=== PATIENT | female | born 1975 | race African-American/Black ===

== ENCOUNTER 2017-01-14 21:09 | Emergency (ER) | payer OTHER ==
[2017-01-14 21:32] VITALS: BP 144/93; PULSE 100; TEMP 98.4; BMI 35.5
== END 2017-01-14 22:46 | disposition left against medical advice (07) ==
LOC: JER 21:09 → SUPCPDRO 21:09 → JER 22:46
DX: Z53.21 Procedure and treatment not carried out due to patient leaving prior to being seen by health care provider (principal)
CPT/HCPCS: 99281-25

== ENCOUNTER 2017-01-17 09:56 | Emergency (ER) | payer OTHER ==
[2017-01-17 10:09] VITALS: BP 162/98; PULSE 103; TEMP 98.5; BMI 32.8
--- NOTE | 2017-01-17 10:29 | PDOC ---
History of Present Illness - General Chief Complaint: Chest Pain Stated Complaint: CHEST PAIN Time Seen by Provider: 01/17/17 10:27 History Source: Patient Exam Limitations: No Limitations - History of Present Illness Initial Comments: 01/17/17 11:15 Chief Complaint: "My chest hurts and has hurt for the last five days". Pt. is a 41 y/o female s/p 20 days ago, with PMH of R lung cancer (2008), ectopic , presents to the ED complaining of chest pain. Pt states that the right side of her chest hurts and is made worse when taking a big breath, sneezing, laughing, or changing position. Admits to non- productive cough, edema, light headedness, SOB with exertion. Pt. states that she is worried because of her cancer history. Pt. took one Percocet at 5am with little relief. Denies headache, palpitations, and N/V/D. Past History - Travel Traveled outside of the country in the last 30 days: No Close contact w/someone who was outside of country & ill: No - Past Medical History Allergies/Adverse Reactions: Allergies Allergy/AdvReac Type Severity Reaction Status Date / Time No Known Allergies Allergy Verified 01/17/17 10:06 Home Medications: Ambulatory Orders Oxycodone HCl/Acetaminophen [Percocet 5-325 mg Tablet] 1 - 2 tab PO Q6H PRN #14 tab MDD 8 01/17/17 Cancer: Yes (H/O RT LUNG CA: 2008) - Surgical History Abdominal Surgery: Yes (ECTOPIC ) - Reproductive History (#): 7 Para: 2 Therapeutic (s) & number: Yes (2) Spontaneous : 3 - Immunization History Immunization Up to Date: Yes - Psycho/Social/Smoking Cessation Hx Anxiety: No Suicidal Ideation: No Smoking Status: Yes Smoking History: Former smoker Have you smoked in the past 12 months: Yes Number of Cigarettes Smoked Daily: 7 Information on smoking cessation initiated: No Hx Alcohol Use: No Drug/Substance Use Hx: No Substance Use Type: None Hx Substance Use Treatment: No Review of Systems - Review of Systems Able to Perform ROS?: Yes Is the patient limited Bengali proficient: No Constitutional: No: Chills, Fever, Weakness HEENTM: Yes: Nose Congestion. No: Recent change in vision Respiratory: Yes: Cough, SOB with Exertion, Wheezing. No: SOB at Rest Cardiac (ROS): Yes: Chest Pain (right sided), Edema, Irregular Heart Rate, Lightheadedness. No: Palpitations ABD/GI: No: Diarrhea, Nausea, Vomiting Neurological: No: Headache, Weakness, Dizziness *Physical Exam - Vital Signs Last Vital Signs Temp Pulse Resp BP Pulse Ox 98.5 F 103 H 18 162/98 100 01/17/17 10:06 01/17/17 10:06 01/17/17 10:06 01/17/17 10:06 01/17/17 10:06 - Physical Exam General Appearance: Yes: Nourished, Appropriately Dressed, Mild Distress HEENT: positive: EOMI, EDGARD, Normal ENT Inspection, TMs Normal, Pharynx Normal Neck: positive: Trachea midline, Supple. negative: Tender, Rigid, Lymphadenopathy (R), Lymphadenopathy (L) Respiratory/Chest: positive: Chest Tender, Lungs Clear, Normal Breath Sounds, Respiratory Distress, Accessory Muscle Use Cardiovascular: positive: Regular Rhythm, S1, S2 (present, No splits), Edema (1 + pedal edema), Tachycardia (rate of 110 R). negative: Murmur Gastrointestinal/Abdominal: positive: Normal Bowel Sounds, Tender (diffuse abdominal tenderness, worse over scar), Flat, Soft, Hernia (umbilical hernia, reducible). negative: Organomegaly, Pulsatile Mass Neurologic: positive: delivery and mail sorter II-XII NML intact, Fully Oriented, Alert, Normal Mood/ Affect, Normal Response, Motor Strength 5/5 ED Treatment Course - LABORATORY CBC & Chemistry Diagram: 01/17/17 10:45 01/17/17 10:45 Medical Decision Making - Medical Decision Making 01/17/17 11:27 Pt. is a 41 y/o female complaining of chest pain s/p 20 days ago. Pt. is tachycardic on exam, O2 sats 99% on RA. Given exam cannot r/o PE. Pt states that the pain is similar to her cancer pain in the past. Tenderness to palpation over umbilicus and LLQ. Will evaluate the hernia at this time with abdominal CT. Will order chest CTA. Will also r/o pneumonia and cardiac causes. Will give morphine for pain and start fluids to pre-hydrate prior to CTA and CT of abdomen. Will re-evaluate EKG: Sinus tachycardia rate of 97. Qt/QTc 380/482. No acute ST-T wave changes. 01/17/17 12:47 Cardiac labs are negative at this time. No evidence of infection, WBC within normal limits. CMP unremarkable. 01/17/17 14:15 CTA chest shows no evidence of PE, heart size within normal limits. Abdominal CT shows a fat containing hernia, but no obstruction, free air or bleeding. All imaging is considered negative at this time. Pt. is still complaining of pain. Will give toradol at this time. Pt. still has not given urine sample. Will give another bag of fluids and encourage pt. to use the bathroom. 01/17/17 15:52 Urine is negative at this time. Will discharge pt. home at this time. Pt. states that she would like another dose of morphine because her IV line infiltrated after the first dose. Will give 1mg of morphine and discharge home. *DC/Admit/Observation/Transfer Diagnosis at time of Disposition: Chest pain Qualifiers: Chest pain type: precordial pain Qualified Code(s): R07.2 - Precordial pain Abdominal pain Qualifiers: Abdominal location: left lower quadrant Qualified Code(s): R10.32 - Left lower quadrant pain - Discharge Dispostion Disposition: HOME Condition at time of disposition: Fair Admit: No - Prescriptions Prescriptions: Oxycodone HCl/Acetaminophen [Percocet 5-325 mg Tablet] 1 - 2 tab PO Q6H PRN #14 tab MDD 8 PRN Reason: Pain - Referrals Referrals: Teofilo Torres MD [Primary Care Provider] - - Patient Instructions Printed Discharge Instructions: DI for Atypical Chest Pain Additional Instructions: Your testing today was normal. Your white blood cell count was within normal limits. You CAT of your lungs today showed no evidence of blood clots, or any other abnormalities. Your abdominal CAT Scan shows a hernia, but otherwise, no blockages or infection. You were prescribed tramadol for pain and follow the instructions on the bottle. Return to the ED if your pain is worse while on the pain medications, or if you become lightheaded or short of breath, or if there are any changes in your symptoms.
[2017-01-17] MEDS ORDERED: SODIUM CHLORIDE 1,000 ML IV STA ×2 (10:49→14:07)
[2017-01-17] MEDS ORDERED: morphine CARPU-JECT 2 MG/1 ML DISP.SYRIN IVPUSH ONE ×2 (10:50→15:45)
[2017-01-17] MEDS ORDERED: morphine CARPU-JECT 2 MG/1 ML DISP.SYRIN ONE ×2 (11:16→15:50)
[2017-01-17 11:36] LABS: BASOPHIL 1.3 % (0-2.0); EOSINOPHIL 7.9 % (0-4.5); MCH 29.1 pg (25.7-33.7); MCHC 32.7 g/dl (32.0-36.0); MEAN PLT VOLUME 7.9 fl (7.5-11.1); NEUTROPHILS 66.1 % (42.8-82.8); PLATELET COUNT 240 K/MM3 (134-434); RDW 15.6 % (11.6-15.6); WHITE BLOOD COUNT 6.2 K/mm3 (4.0-10.0)
[2017-01-17 11:52] LABS: ALBUMIN 3.5 g/dl (3.4-5.0); ANION GAP 9 (8-16); BILIRUBIN,TOTAL 0.5 mg/dL (0.2-1.0); CO2 27 mmol/L (21-32); CREATININE 0.8 mg/dL (0.55-1.02); GLUCOSE,RANDOM 90 mg/dL (74-106); SGPT/ALT 18 U/L (12-78); TOT PROT 7.1 g/dl (6.4-8.2)
[2017-01-17 11:55] LABS: ALK PHOS 97 U/L (45-117); TROPONIN I < 0.02 ng/ml (0.00-0.05)
[2017-01-17 12:03] LABS: SGOT/AST 30 U/L (15-37)
--- NOTE | 2017-01-17 12:11 | PDOC ---
*Physical Exam - Vital Signs Last Vital Signs Temp Pulse Resp BP Pulse Ox 98.5 F 103 H 18 162/98 100 01/17/17 10:06 01/17/17 10:06 01/17/17 10:06 01/17/17 10:06 01/17/17 10:06 - Physical Exam Comments: 01/17/17 12:07 Seated comfortably in stretcher speaking full sentences, vital signs as noted with slight tachycardia tender across the right chest, lungs sounds are clear Heart is regular slight tachycardia Abdomen is soft/nondistended, tender particularly in the left lower quadrant and over an umbilical hernia that is difficult to reduce Question whether right ankle is slightly larger than the left - patient states this is been the case since her delivery Heart Score/ECG Review #1 ECG reviewed & interpreted by me at: 10:04 General ECG Interpretation: Sinus Rhythm, Normal Rate (97), Normal Intervals ( qtc 482), No acute ischemic changes (no evidence of R heart strain, ? read as low voltage) ED Treatment Course - LABORATORY CBC & Chemistry Diagram: 01/17/17 10:45 01/17/17 10:45 - ADDITIONAL ORDERS Additional order review: Laboratory Results 01/17/17 01/17/17 10:45 10:45 Sodium 139 Potassium 4.6 Chloride 103 Carbon Dioxide 27 Anion Gap 9 BUN 6 L D Creatinine 0.8 Creat Clearance w eGFR > 60 Random Glucose 90 Calcium 8.0 L Total Bilirubin 0.5 D AST 30 D ALT 18 Alkaline Phosphatase 97 D Creatine Kinase Cancelled 272 H Troponin I Cancelled < 0.02 Total Protein 7.1 Albumin 3.5 01/17/17 10:45 RBC 4.10 MCV 89.0 MCHC 32.7 RDW 15.6 D MPV 7.9 D Neutrophils % 66.1 Lymphocytes % 19.7 D Monocytes % 5.0 Eosinophils % 7.9 H Basophils % 1.3 - Medications Given in the ED: ED Medications Discontinued Medications Generic Name Dose Route Start Last Admin Trade Name Freq PRN Reason Stop Dose Admin Sodium Chloride 1,000 mls @ 1,000 mls/hr 01/17/17 10:49 01/17/17 11:12 Normal Saline - IV 01/17/17 11:48 1,000 mls/hr ASDIR STA Administration Morphine Sulfate 2 mg 01/17/17 10:50 01/17/17 11:13 Morphine Injection - IVPUSH 01/17/17 10:51 2 mg ONCE ONE Administration Medical Decision Making - Medical Decision Making 01/17/17 12:09 Patient seen and evaluated with the nurse practitioner. I agree with the overall evaluation, assessment, and management with the following summary of visit: 41-year-old female 20 days status post of otherwise uncomplicated presents with right chest pain for 5 days similar to past mesothelioma symptoms, also with some fatigue on exertion and cough. Also complaining of left lower quadrant pain since her , no vomiting, normal bowel movements, no change in her known umbilical hernia. Presentation could be concerning for PE given the recent surgery and , will need CTA chest. Symptoms are similar to past mesothelioma which was treated with chemotherapy and radiation, rule out recurrence particularly in the setting of recent Concerning umbilical hernia which is very tender and difficult to reduce, will check CT of the abdomen and pelvis to rule out obstruction or incarceration Labs, urinalysis, EKG Pain control reassess *DC/Admit/Observation/Transfer Diagnosis at time of Disposition: Chest pain Qualifiers: Chest pain type: precordial pain Qualified Code(s): R07.2 - Precordial pain Abdominal pain Qualifiers: Abdominal location: left lower quadrant Qualified Code(s): R10.32 - Left lower quadrant pain - Discharge Dispostion Condition at time of disposition: Fair - Referrals Referrals: Teofilo Torres MD [Primary Care Provider] - - Patient Instructions - Post Discharge Activity
[2017-01-17] MEDS ORDERED: KETOROLAC TROMETHAMINE 30 MG/1 ML VIAL IVPUSH ONE (13:45)
--- NOTE | 2017-01-17 13:59 | EKG ---
Test Reason : Blood Pressure : / mmHG Vent. Rate : 097 BPM Atrial Rate : 097 BPM P-R Int : 152 ms QRS Dur : 080 ms QT Int : 380 ms P-R-T Axes : 070 017 044 degrees QTc Int : 482 ms NORMAL SINUS RHYTHM POSSIBLE LEFT ATRIAL ENLARGEMENT LOW VOLTAGE QRS PROLONGED QT ABNORMAL ECG WHEN COMPARED WITH ECG OF 25-MAR-2011 08:16, NO SIGNIFICANT CHANGE WAS FOUND Confirmed by JESSICA PADILLA MD ([id number]) on 01/17/2017 1:59:14 PM Referred By: Confirmed By:JESSICA PADILLA MD
[2017-01-17] MEDS ORDERED: KETOROLAC TROMETHAMINE 30 MG/1 ML VIAL ONE (14:10)
[2017-01-17 15:10] LABS: URINE APPEARANCE CLEAR; URINE BILIRUBIN NEGATIVE (NEGATIVE); URINE BLOOD NEGATIVE (NEGATIVE); URINE COLOR STRAW; URINE GLUCOSE (UA) NEGATIVE (NEGATIVE); URINE KETONE NEGATIVE (NEGATIVE); URINE LEUK ESTERASE NEGATIVE (NEGATIVE); URINE NITRITE NEGATIVE (NEGATIVE); URINE PROTEIN NEGATIVE (NEGATIVE); URINE UROBILINOGEN NEGATIVE E.U./dl (0.2-1.0)
== END 2017-01-17 16:56 | disposition home or self-care (01) ==
LOC: JER 09:56
PROC: 3E033NZ Introduction of Analgesics, Hypnotics, Sedatives into Peripheral Vein, Percutaneous Approach (ICD-10-PCS; principal; 2017-01-17)
PROC: 3E0333Z Introduction of Anti-inflammatory into Peripheral Vein, Percutaneous Approach (ICD-10-PCS; 2017-01-17)
PROC: 3E033NZ Introduction of Analgesics, Hypnotics, Sedatives into Peripheral Vein, Percutaneous Approach (ICD-10-PCS; 2017-01-17)
DX: O90.89 Other complications of the puerperium, not elsewhere classified (principal); R07.2 Precordial pain; R10.32 Left lower quadrant pain
CPT/HCPCS: 36415; 71020-TC; 71275-TC; 74160-TC; 80053; 81003; 82550; 82553; 84484; 85025; 87086; 93005; 93010; 96374; 96375; 96376; 99284-25

== ENCOUNTER 2017-03-15 12:03 | Emergency (ER) | payer OTHER ==
[2017-03-15 12:14] VITALS: BP 153/94; PULSE 100; TEMP 98.4; BMI 34.2
--- NOTE | 2017-03-15 13:06 | PDOC ---
History of Present Illness - General Chief Complaint: Ear Problem Stated Complaint: EAR PROBLEM Time Seen by Provider: 03/15/17 12:35 History Source: Patient Exam Limitations: No Limitations - History of Present Illness Initial Comments: 03/15/17 14:17 My Chief Complaint: worsening right ear pain History of present illness: Patient is a 41-year-old female with a history of small cell lung cancer 2019 in remission and herniated disc lumbar spine here today complaining of right ear pain that is worsening with yellowish discharge over the last 3 days. Patient denies any swimming. Patient denies putting anything in her right ear. Patient reports the pain currently as a 10 out of 10. Patient has tenderness to the external ear as well as internal ear. Patient also reports having slight sore throat for the last few days. Patient denies any sick contacts or any recent travel. Patient denies any fever or any loss of hearing. Timing/Duration: getting worse (over 3 days ) Severity: severe Associated Symptoms: reports: other (rt. external and internal rt. ear pain for 3 days ) Past History - Past Medical History Allergies/Adverse Reactions: Allergies Allergy/AdvReac Type Severity Reaction Status Date / Time No Known Allergies Allergy Verified 03/15/17 12:14 Home Medications: Ambulatory Orders Oxycodone HCl/Acetaminophen [Percocet 5-325 mg Tablet] 1 - 2 tab PO Q6H PRN #14 tab MDD 8 01/17/17 Amoxicillin/Potassium Clav [Amox-Clav 875-125 mg Tablet] 1 each PO BID #10 tablet 03/15/17 Ofloxacin Otic [Floxin Otic -] 10 drop AD DAILY #1 drops 03/15/17 Cancer: Yes (H/O RT LUNG CA: 2009) - Surgical History Abdominal Surgery: Yes (ECTOPIC ) - Reproductive History (#): 7 Para: 2 Therapeutic (s) & number: Yes (2) Spontaneous : 3 - Immunization History Immunization Up to Date: Yes - Psycho/Social/Smoking Cessation Hx Anxiety: No Suicidal Ideation: No Smoking Status: Yes Smoking History: Former smoker Have you smoked in the past 12 months: Yes Number of Cigarettes Smoked Daily: 7 Information on smoking cessation initiated: No Hx Alcohol Use: No Drug/Substance Use Hx: No Substance Use Type: None Hx Substance Use Treatment: No Review of Systems - Review of Systems Able to Perform ROS?: Yes Constitutional: No: Symptoms Reported HEENTM: Yes: Ear Pain (right internal and external ear pain getting worse, yellowish discharge rt. ear), Throat Pain. No: Hearing Loss Respiratory: No: Symptoms reported ABD/GI: No: Symptoms Reported : No: Symptoms Reported Musculoskeletal: No: Symptoms Reported Integumentary: No: Symptoms Reported Neurological: No: Symptoms reported *Physical Exam - Vital Signs Last Vital Signs Temp Pulse Resp BP Pulse Ox 98.4 F 100 H 18 153/94 99 03/15/17 12:03/15/17 12:03/15/17 12:03/15/17 12:03/15/17 12:09 - Physical Exam General Appearance: Yes: Appropriately Dressed HEENT: positive: TMs Normal (left ), Pharyngeal Erythema, Tonsillar Erythema ( with no uvular deviation ), Hearing Grossly Normal, TM Bulging (right ), TM Erythema (right ), Other (external rt. ear canal edema/erythema, tragus erythema /tenderness/ erythema post auricular, no mastoid tenderness). negative: Tonsillar Exudate Neck: positive: Lymphadenopathy (R). negative: Lymphadenopathy (L) Respiratory/Chest: positive: Lungs Clear, Normal Breath Sounds. negative: Chest Tender, Respiratory Distress Cardiovascular: positive: Regular Rhythm, Regular Rate, S1, S2 Integumentary: positive: Normal Color Neurologic: positive: Alert Medical Decision Making - Medical Decision Making 03/15/17 14:19 Patient is a 41-year-old female with a history of small cell lung cancer 2019 in remission and herniated disc lumbar spine here today complaining of right ear pain that is worsening with yellowish discharge over the last 3 days. Patient denies any swimming. Patient denies putting anything in her right ear. Patient reports the pain currently as a 10 out of 10. Patient has tenderness to the external ear as well as internal ear. Patient also reports having slight sore throat for the last few days. Patient denies any sick contacts or any recent travel. Patient denies any fever or any loss of hearing. right external otitis and rt. otitis media PLAN: ofloxacin otic 0.3% 10 drops rt ear for 7 days augmentin 875mg/125 mg bid for 10 days follow up with ENT percocet 5mg/325mg po now *DC/Admit/Observation/Transfer Diagnosis at time of Disposition: Otitis media Qualifiers: Otitis media type: unspecified Chronicity: acute Laterality: unspecified laterality Qualified Code(s): H66.90 - Otitis media, unspecified, unspecified ear Otitis externa of right ear Qualifiers: Otitis externa type: unspecified type Chronicity: acute Qualified Code(s): H60.501 - Unspecified acute noninfective otitis externa, right ear - Discharge Dispostion Disposition: HOME Condition at time of disposition: Stable - Prescriptions Prescriptions: Amoxicillin/Potassium Clav [Amox-Clav 875-125 mg Tablet] 1 each PO BID #10 tablet Ofloxacin Otic [Floxin Otic -] 10 drop AD DAILY #1 drops - Referrals Referrals: Teofilo Torres MD [Primary Care Provider] - Kevin Rodriguez MD [Staff Physician] - - Patient Instructions Additional Instructions: FOLLOW UP WITH DR. RODRIGUEZ SOON POSSIBLE RETURN TO EMERGENCY ROOM IF SYMPTOMS WORSEN INCREASED REDNESS OR FEVER PATIENT VOICED UNDERSTANDING OF DISCHARGE INSTRUCTIONS AND ALL QUESTIONS WERE ANSWERED
[2017-03-15] MEDS ORDERED: OXYCODONE/APAP 5/325MG COMBO TABLET PO ONE (14:06)
[2017-03-15] MEDS ORDERED: OXYCODONE/APAP 5/325MG COMBO TABLET ONE (14:08)
== END 2017-03-15 14:21 | disposition home or self-care (01) ==
LOC: JERFT 12:03
DX: H66.91 Otitis media, unspecified, right ear (principal); H60.501 Unspecified acute noninfective otitis externa, right ear
CPT/HCPCS: 84703; 87070; 87430; 99281-25

== ENCOUNTER 2017-12-29 12:55 | Emergency (ER) | payer OTHER ==
[2017-12-29 12:59] VITALS: BP 151/100; PULSE 110; TEMP 98; BMI 34.9
--- NOTE | 2017-12-29 13:50 | PDOC ---
History of Present Illness - General Chief Complaint: Pain Stated Complaint: Toothache Time Seen by Provider: 12/29/17 13:11 History Source: Patient Exam Limitations: No Limitations Past History - Past Medical History Allergies/Adverse Reactions: Allergies Allergy/AdvReac Type Severity Reaction Status Date / Time No Known Allergies Allergy Verified 12/29/17 12:56 Home Medications: Ambulatory Orders Amox-Tr/K Cl [Augmentin - 875Mg Tablet] 1 tab PO BID #14 tablet 12/29/17 Oxycodone HCl/Acetaminophen [Percocet 5-325 mg Tablet] 1 tab PO Q6H #15 tablet MDD 4 12/29/17 Cancer: Yes (H/O RT LUNG CA: 2008) COPD: No Other medical history: BACK PROBLEMS - Surgical History Abdominal Surgery: Yes (ECTOPIC ) - Reproductive History (#): 7 Para: 2 Therapeutic (s) & number: Yes (2) Spontaneous : 3 - Immunization History Immunization Up to Date: Yes - Suicide/Smoking/Psychosocial Hx Smoking Status: Yes Smoking History: Former smoker Have you smoked in the past 12 months: Yes Number of Cigarettes Smoked Daily: 7 Information on smoking cessation initiated: Yes 'Breaking Loose' booklet given: 12/29/17 Hx Alcohol Use: No Drug/Substance Use Hx: No Substance Use Type: None Hx Substance Use Treatment: No *Physical Exam - Vital Signs Last Vital Signs Temp Pulse Resp BP Pulse Ox 98.0 F 110 H 18 151/100 100 12/29/17 12:57 12/29/17 12:57 12/29/17 12:57 12/29/17 12:57 12/29/17 12:57 *DC/Admit/Observation/Transfer Diagnosis at time of Disposition: Gum abscess - Discharge Dispostion Disposition: HOME Condition at time of disposition: Stable Admit: No - Prescriptions Prescriptions: Amox-Tr/K Cl [Augmentin - 875Mg Tablet] 1 tab PO BID #14 tablet Oxycodone HCl/Acetaminophen [Percocet 5-325 mg Tablet] 1 tab PO Q6H #15 tablet MDD 4 - Referrals Referrals: Teofilo Torres MD [Primary Care Provider] - - Patient Instructions Printed Discharge Instructions: DI for Tooth Abscess Additional Instructions: You have an infection in your gum. Please take the Augmentin twice a day for 7 days. You may take Motrin 800 mg every 8 hours as needed for pain. If you experience breakthrough pain. Please take the Percocet as directed. Use warm water gargles to help with cleaning her mouth. Please follow up with her dentist as soon as possible. A referral has been provided below. Return to the emergency department if you have worsening pain, fevers, chills, or any changes in your symptoms. [facility] [id number] [place] [address] - Post Discharge Activity Forms/Work/School Notes: Back to Work
== END 2017-12-29 13:55 | disposition home or self-care (01) ==
LOC: JERFT 12:55
DX: K05.219 Aggressive periodontitis, localized, unspecified severity (principal)
CPT/HCPCS: 99281-25

== ENCOUNTER 2018-04-26 20:56 | Observation (INO) | payer OTHER ==
[2018-04-26 21:18] VITALS: BMI 36.5
--- NOTE | 2018-04-26 21:20 | PDOC ---
Rapid Medical Evaluation Time Seen by Provider: 04/26/18 21:15 Medical Evaluation: Allergies Allergy/AdvReac Type Severity Reaction Status Date / Time No Known Allergies Allergy Verified 04/25/18 03:50 04/26/18 21:16 Pt presents to the ED for abdominal pain. Pt was evaluated yesterday and was told to stay d/t her withdrawals from oxycodone. Pt states the pain is worse and she is unable to keep anything down. Reports burning down her esophagus as well. Exam: ttp of the abdomen. Appears uncomfortable Orders: Discharge Disposition - Diagnosis Abdominal pain - Referrals Referrals: Teofilo Torres MD [Primary Care Provider] - - Patient Instructions - Post Discharge Activity
[2018-04-26] MEDS ORDERED: FAMOTIDINE 20 MG/50 ML IVPB 20 MG/50 ML MG IVPB ONE ×2 (22:25→23:03)
[2018-04-26] MEDS ORDERED: DICYCLOMINE HCL 20 MG/2 ML AMPUL IM ONE (22:25)
[2018-04-26] MEDS ORDERED: SODIUM CHLORIDE 0.9% 1000 ML INFUS.BAG IV ONE (22:25)
[2018-04-26] MEDS ORDERED: ONDANSETRON 4 MG/2 ML VIAL IVPUSH ONE (22:25)
--- NOTE | 2018-04-26 22:25 | PDOC ---
History of Present Illness - General History Source: Patient, Old Records Exam Limitations: No Limitations - History of Present Illness Initial Comments: 04/27/18 01:34 The patient is a 42 year old female, with a significant past medical history of right lung CA (2008), who presents to the ED complaining of abdominal pain. It is noted that the patient was evaluated yesterday and was told that she needed to stay in the hospital due to withdrawals from oxycodone. She reports that her pain is worsening and is unable to keep any foods or liquids down. She notes that she feels a burning sensation down her esophagus. The patient denies chest pain, shortness of breath, headache and dizziness. Denies fever, chills, diarrhea or constipation. Denies dysuria, frequency, urgency and hematuria. Allergies: None Past surgical history: Ectopic Social History: Current every day smoker (10 daily). Opiate use. <Dm Castro - Last Filed: 04/27/18 01:34> <Casandra Webster - Last Filed: 04/27/18 01:39> - General Chief Complaint: Nausea/Vomiting Stated Complaint: STOMACH PAIN Time Seen by Provider: 04/26/18 21:15 Past History <Dm Castro - Last Filed: 04/27/18 01:34> - Past Medical History Cancer: Yes (H/O RT LUNG CA: 2008) COPD: No - Surgical History Abdominal Surgery: Yes (ECTOPIC ) - Reproductive History (#): 7 Para: 2 Therapeutic (s) & number: Yes (2) Spontaneous : 3 - Immunization History Immunization Up to Date: Yes - Suicide/Smoking/Psychosocial Hx Smoking Status: Yes Smoking History: Current every day smoker Have you smoked in the past 12 months: Yes Number of Cigarettes Smoked Daily: 10 Information on smoking cessation initiated: Yes 'Breaking Loose' booklet given: 04/26/18 Hx Alcohol Use: No Drug/Substance Use Hx: No Substance Use Type: Opiates Hx Substance Use Treatment: No <Casandra Webster - Last Filed: 04/27/18 01:39> - Past Medical History Allergies/Adverse Reactions: Allergies Allergy/AdvReac Type Severity Reaction Status Date / Time No Known Allergies Allergy Verified 04/26/18 21:18 Home Medications: Ambulatory Orders Oxycodone HCl/Acetaminophen [Percocet 5-325 mg Tablet] 1 tab PO Q6H #15 tablet MDD 4 12/29/17 Oxycodone HCl/Acetaminophen [Oxycodone-Acetaminophen 10-325] 1 each PO TID PRN # 9 tablet MDD 3 tabs 04/25/18 Review of Systems - Review of Systems Able to Perform ROS?: Yes Comments:: 04/26/18 23:47 GENERAL/CONSTITUTIONAL: No fever or chills. No weakness. HEAD, EYES, EARS, NOSE AND THROAT: No change in vision. No ear pain or discharge. No sore throat. GASTROINTESTINAL: (+) Abdominal pain. No nausea, vomiting, diarrhea or constipation. GENITOURINARY: No dysuria, frequency, or change in urination. CARDIOVASCULAR: No chest pain or shortness of breath. RESPIRATORY: No cough, wheezing, or hemoptysis. MUSCULOSKELETAL: No joint or muscle swelling or pain. No neck or back pain. SKIN: No rash NEUROLOGIC: No headache, vertigo, loss of consciousness, or change in strength/ sensation. ENDOCRINE: No increased thirst. No abnormal weight change. HEMATOLOGIC/LYMPHATIC: No anemia, easy bleeding, or history of blood clots. ALLERGIC/IMMUNOLOGIC: No hives or skin allergy. <Dm Castro - Last Filed: 04/27/18 01:34> *Physical Exam - Vital Signs Last Vital Signs Temp Pulse Resp BP Pulse Ox 99.4 F 110 H 18 162/104 99 04/26/18 21:15 04/26/18 21:15 04/26/18 21:15 04/26/18 21:15 04/26/18 21:15 - Physical Exam Comments: 04/26/18 23:46 Constitutional: Awake, alert, oriented. No acute distress. Head: Normocephalic. Atraumatic Eyes: PERRL. EOMI. Conjunctivae are not pale. ENT: Mucous membranes are moist and intact. Posterior pharynx without exudates or erythema. Uvula midline. Neck: Supple. Full ROM. No lymphadenopathy. Cardiovascular: Regular rate. Regular rhythm. S1, S2 regular. Distal pulses are 2+ and symmetric. Pulmonary/Chest: No evidence of respiratory distress. Clear to auscultation bilaterally No wheezing, rales or rhonchi. Abdominal: Soft and non-distended. There is no tenderness. No rebound, guarding or rigidity. No organomegaly. No palpable masses. Good bowel sounds. Back: No CVA tenderness. Musculoskeletal: No edema. No cyanosis. No clubbing. Full range of motion in all extremities. Nocalf tenderness. Radial/pedal pulses are intact and 2+ bilaterally Skin: Skin is warm and dry. No petechiae. No purpura. Neurological: Alert and oriented to person, place, and time. Cranial nerves II -XII are grossly intact. Normal speech. Strength is grossly symmetric. No sensory deficits. Psychiatric: Good eye contact. Normal interaction, affect and behavior. <Dm Castro - Last Filed: 04/27/18 01:34> - Vital Signs Last Vital Signs Temp Pulse Resp BP Pulse Ox 99.4 F 110 H 18 162/104 99 04/26/18 21:15 04/26/18 21:15 04/26/18 21:15 04/26/18 21:15 04/26/18 21:15 <Casandra Webster - Last Filed: 04/27/18 01:39> Heart Score/ECG Review - ECG Intrepretation Comment:: 04/26/18 23:56 sinus at 100, nl axis, nl interval, no acute st/t wave findings <Casandra Webster - Last Filed: 04/27/18 01:39> ED Treatment Course - LABORATORY CBC & Chemistry Diagram: 04/26/18 22:56 04/26/18 22:56 - ADDITIONAL ORDERS Additional order review: Laboratory Results 04/26/18 22:56 Sodium 138 Potassium 3.7 Chloride 105 Carbon Dioxide 25 Anion Gap 8 BUN 7 Creatinine 1.1 H Creat Clearance w eGFR 55.01 Random Glucose 100 Calcium 8.7 Total Bilirubin 0.3 AST 20 ALT 18 Alkaline Phosphatase 83 D Total Protein 7.8 Albumin 3.9 04/26/18 22:56 RBC 4.41 MCV 75.3 L MCHC 32.3 RDW 19.3 H MPV 7.1 L Neutrophils % 71.2 Lymphocytes % 21.7 D Monocytes % 4.5 D Eosinophils % 1.6 D Basophils % 1.0 - Medications Given in the ED: ED Medications Discontinued Medications Generic Name Dose Route Start Last Admin Trade Name Freq PRN Reason Stop Dose Admin Dicyclomine HCl 20 mg 04/26/18 22:25 04/26/18 23:11 Bentyl Injection - IM 04/26/18 22:26 20 mg ONCE ONE Administration Famotidine/Sodium Chloride 20 mg in 50 mls @ 100 mls/hr 04/26/18 22:25 23:09 Pepcid 20 Mg Premixed Ivpb - IVPB 04/26/18 22:54 100 mls/hr ONCE ONE Administration Ondansetron HCl 4 mg 04/26/18 22:25 04/26/18 23:10 Zofran Injection IVPUSH 04/26/18 22:26 4 mg ONCE ONE Administration Sodium Chloride 1,000 ml 04/26/18 22:25 04/26/18 23:10 Normal Saline - IV 04/26/18 22:26 1,000 ml ONCE ONE Administration <Dm Castro - Last Filed: 04/27/18 01:34> - LABORATORY CBC & Chemistry Diagram: 04/26/18 22:56 04/26/18 22:56 <Casandra Webster - Last Filed: 04/27/18 01:39> Medical Decision Making - Medical Decision Making 04/26/18 23:38 a/p: 42yo female with hx of opiate use for chronic lbp -stopped taking her oxycodone a week ago -seen in the ED for narcotic withdrawal last night -didn't want to stay for furhter treatment -today continued to have n/v and a burning sensation to her abd -pt given hydrocodone in the ed during last visit so again concern for narcotic withdrawal -will repeat labs, ekg -will medicate for narcotic withdrawal and for n/v -will give GI cocktail once n/v resolved -will monitor and reassess -will most likely need obs for narcotic withdrawal 04/27/18 01:06 pt with persistent vomiting will remedicate and place in obs for intractable n/v from narcotic withdrawal 04/27/18 01:38 pt states she cannot fill her oxycodone rx until may 04, but does not want to stop taking her narcotics pt with persistent nv in the ed case discussed with [facility] who accepts pt to service <Casandra Webster - Last Filed: 04/27/18 01:39> *DC/Admit/Observation/Transfer - Attestations Scribe Attestion: 04/26/18 23:46 Documentation prepared by Dm Castro, acting as medical aide for Casandra Webster DO <Dm Castro - Last Filed: 04/27/18 01:34> - Discharge Dispostion Decision to Admit order: Yes - Attestations Physician Attestion: 04/27/18 01:07 I, Dr. Casandra Webster DO, attest that this document has been prepared under my direction and personally reviewed by me in its entirety. I further attest, that it accurately reflects all work, treatment, procedures and medical decision -making performed by me. <Casandra Webster - Last Filed: 04/27/18 01:39> Diagnosis at time of Disposition: Abdominal pain, Nausea and vomiting - Discharge Dispostion Condition at time of disposition: Guarded - Referrals Referrals: Teofilo Torres MD [Primary Care Provider] - - Patient Instructions - Post Discharge Activity
[2018-04-26] MEDS ORDERED: ONDANSETRON 4 MG/2 ML VIAL ONE (23:02)
[2018-04-26 23:04] LABS: EOS % 1.6 % (0-4.5); HEMATOCRIT 33.2 % (32.4-45.2); HEMOGLOBIN 10.7 GM/dL (10.7-15.3); LYMPH % 21.7 % (8-40); MCH 24.3 pg (25.7-33.7); MCHC 32.3 g/dl (32.0-36.0); MEAN CELL VOLUME 75.3 fl (80-96); MEAN PLT VOLUME 7.1 fl (7.5-11.1); MONO % 4.5 % (3.8-10.2); NEUT % 71.2 % (42.8-82.8); PLATELET COUNT 402 K/MM3 (134-434); RBC 4.41 M/mm3 (3.60-5.2); RDW 19.3 % (11.6-15.6); WHITE BLOOD COUNT 6.9 K/mm3 (4.0-10.0)
[2018-04-26 23:38] LABS: ALBUMIN 3.9 g/dl (3.4-5.0); ANION GAP 8 MMOL/L (8-16); BILIRUBIN,TOTAL 0.3 mg/dL (0.2-1.0); BLOOD UREA NITROGEN 7 mg/dL (7-18); CALCIUM 8.7 mg/dL (8.5-10.1); CHLORIDE 105 mmol/L (98-107); CO2 25 mmol/L (21-32); CREATININE 1.1 mg/dL (0.55-1.02); GLUCOSE,RANDOM 100 mg/dL (74-106); POTASSIUM 3.7 mmol/L (3.5-5.1); SGOT/AST 20 U/L (15-37); SGPT/ALT 18 U/L (12-78); SODIUM 138 mmol/L (136-145); TOT PROT 7.8 g/dl (6.4-8.2)
[2018-04-26 23:39] LABS: ALK PHOS 83 U/L (45-117)
[2018-04-26] MEDS ORDERED: MAG HYDROX/AL HYDROX/SIMETH 30 ML UNIT-DOSE CUP PO ONE (23:56)
[2018-04-26] MEDS ORDERED: LIDOCAINE VISCOUS 2% ORAL/TOP 20 ML UNIT-DOSE CUP MM ONE (23:56)
[2018-04-27] MEDS ORDERED: METOCLOPRAMIDE HCL INJECTION 10 MG/2 ML VIAL IVPUSH ONE (01:05)
[2018-04-27] MEDS ORDERED: ACETAMINOPHEN 1000 MG/100 ML VIAL (NON FORMULARY) IVPB ONE (01:05)
[2018-04-27] MEDS ORDERED: SODIUM CHLORIDE 0.9% 1000 ML INFUS.BAG IV ONE (01:05)
[2018-04-27] MEDS ORDERED: cloNIDine HCL 0.1 MG TABLET PO ONE (01:06)
[2018-04-27] MEDS ORDERED: LIDOCAINE VISCOUS 2% ORAL/TOP 20 ML UNIT-DOSE CUP ONE (01:12)
[2018-04-27] MEDS ORDERED: MAG HYDROX/AL HYDROX/SIMETH 30 ML UNIT-DOSE CUP ONE (01:13)
[2018-04-27] MEDS ORDERED: cloNIDine HCL 0.1 MG TABLET ONE (01:17)
[2018-04-27] MEDS ORDERED: METOCLOPRAMIDE HCL INJECTION 10 MG/2 ML VIAL ONE ×2 (01:17→08:19)
[2018-04-27] MEDS ORDERED: ACETAMINOPHEN INJECTION 100 ML IVPB ONE (01:17)
[2018-04-27 01:34] LABS: URINE APPEARANCE CLEAR; URINE BILIRUBIN NEGATIVE (<2.0 mg/dL); URINE COLOR LTYELLOW; URINE GLUCOSE (UA) NEGATIVE (NEGATIVE); URINE KETONE NEGATIVE (NEGATIVE); URINE LEUK ESTERASE NEGATIVE (NEGATIVE); URINE NITRITE NEGATIVE (NEGATIVE); URINE PROTEIN NEGATIVE (NEGATIVE); URINE UROBILINOGEN NEGATIVE mg/dL (0.2-1.0)
[2018-04-27 01:36] LABS: HCG,QUALITATIVE URINE Negative
[2018-04-27] MEDS ORDERED: morphine CARPU-JECT 2 MG/1 ML DISP.SYRIN IVPUSH ONE ×2 (01:37→10:00)
[2018-04-27 01:45] LABS: EPI CELLS RARE /HPF (FEW); URINE MUCUS RARE
[2018-04-27] MEDS ORDERED: LORazepam 2 MG/ML SDV VIAL ONE (01:45)
[2018-04-27] MEDS ORDERED: MORPHINE SULFATE 2 MG/ML VIAL ONE (01:45)
--- NOTE | 2018-04-27 03:24 | PN ---
Teaching Attending Note Name of Resident: Ramona Durham ATTENDING PHYSICIAN STATEMENT I saw and evaluated the patient. I reviewed the resident's note and discussed the case with the resident. I agree with the resident's findings and plan as documented. SUBJECTIVE: Patient is a 42 year old woman with a significant past medical history of right lung CA (2008), tobacco use and opiate abuse who presents to the ER complaining of abdominal pain. It is noted that the patient was evaluated yesterday and was told that she needed to stay in the hospital due to withdrawals from oxycodone. She reports that her pain is worsening and is unable to keep any foods or liquids down. She notes that she feels a burning sensation down her esophagus. The patient denies chest pain, shortness of breath, diarrhea headache and dizziness. OBJECTIVE: Somnolent but arousable Vital Signs Period Temp Pulse Resp BP Sys/Bello Pulse Ox Last 24 Hr 99.4 F 110 18 162/104 99 HEENT: No Jaundice, eye redness or discharge, PERRLA, EOMI. Normocephalic, atraumatic. External ears are normal and hearing is grossly intact. No nasal discharge. Neck: Supple, nontender. No palpable adenopathy or thyromegaly. No JVD Chest: Good effort. Clear to auscultation and percussion. Heart: Regular. No S3, rub or murmur Abdomen: Not distended, soft, nontender and no HSM. No rebound or guarding. Normoactive bowel sounds. Ext: Peripheral pulses intact. No leg edema. Skin: Warm and dry. No petechiae, rash or ecchymosis. Neuro: Somnolent but arousable. Incomplete neuro exam due to somnolence. Moving all four extremities. Home Medications Medication Instructions Recorded Oxycodone HCl/Acetaminophen 1 tab PO Q6H #15 tablet MDD 4 12/29/17 [Percocet 5-325 mg Tablet] Oxycodone HCl/Acetaminophen 1 each PO TID PRN #9 tablet MDD 3 04/25/18 [Oxycodone-Acetaminophen 10-325] tabs Abnormal Lab Results 04/26/18 04/26/18 04/27/18 22:56 22:56 01:05 MCV 75.3 L MCH 24.3 L RDW 19.3 H MPV 7.1 L Creatinine 1.1 H Urine Blood 1+ H ASSESSMENT AND PLAN: 1. Abdominal pain and vomiting - Likely due to opiate withdrawal. Had noncontrast CT abdomen and chest yesterday as well as abdominal sonogram and no acute pathology detected. Got IV ativan in the ER. QT is prolonged on EKG. Will treat with IV NS, IV Reglan and Clonidine 0.1 mg po bid for uncontrolled hypertension and opiate withdrawal. Monitor on telemetry and implement fall precautions. Consult GI and desktop publishing specialist. Need outpatient care for hypertension, low salt diet and lifestyle changes. Refer to Detox upon discharge. 2. Tobacco Use We will provide patient all the necessary assistance to facilitate smoking cessation and prescribe Nicotine patch. 3. DVT prophylaxis - Lovenox 40 mg SQ q 24 hours. 4. Advance directives - Full code
[2018-04-27] MEDS ORDERED: METOCLOPRAMIDE HCL INJECTION 10 MG/2 ML VIAL IVPUSH PRN (04:10)
[2018-04-27] MEDS ORDERED: SODIUM CHLORIDE 0.45% 1,000 ML IV SCH (04:15)
--- NOTE | 2018-04-27 05:17 | HP ---
CHIEF COMPLAINT: Abdominal Pain PCP: Dr. Torres HISTORY OF PRESENT ILLNESS: 42 y/o F w a PMHx of R Lung cancer presents with Abdominal pain, nausea and vomiting. Patient was in [facility] ED yesterday (04/25) for a similar complaint however as per the patient, she left to go home to take care of her daughter. She returned today as her abdominal pain is worsening and she has been unable to tolerate PO Intake. Patient was extremely somnolent during my interview, snoring and falling asleep even while sitting up. She describes the pain as a 10 /10, burning sensation in the LUQ that travels up her mid sternum. She has tried tylenol with minimal relief. She says the burning increases with water and food. Additionally she complains of >10 episodes of clear vomiting accompanied by fevers and chills. Denies any diarrhea, constipation, SOB, dizziness, lightheadedness. ER course was notable for: (1) Reglan, Ativan, Morphine, Clonidine (2) EKG: NSR, Prolonged QTc 497, VR 100 (3) Recent Travel: Denies PAST MEDICAL HISTORY: R Lung Cancer (2008) PAST SURGICAL HISTORY: Surgery for Ectopic (Unclear at this time) Social History: Smokin/2 ppd x20 years Alcohol: Denies Drugs: Opiate use Family History: Allergies No Known Allergies Allergy (Verified 04/26/18 21:18) HOME MEDICATIONS: Home Medications Medication Instructions Recorded Oxycodone HCl/Acetaminophen 1 tab PO Q6H #15 tablet MDD 4 12/29/17 [Percocet 5-325 mg Tablet] Oxycodone HCl/Acetaminophen 1 each PO TID PRN #9 tablet MDD 3 04/25/18 [Oxycodone-Acetaminophen 10-325] tabs REVIEW OF SYSTEMS CONSTITUTIONAL: Present: fever, chills Absent: diaphoresis, generalized weakness, malaise, loss of appetite, weight change HEENT: Absent: rhinorrhea, nasal congestion, throat pain, throat swelling, difficulty swallowing, mouth swelling, ear pain, eye pain, visual changes CARDIOVASCULAR: Absent: chest pain, syncope, palpitations, irregular heart rate, lightheadedness , peripheral edema RESPIRATORY: Absent: cough, shortness of breath, dyspnea with exertion, orthopnea, wheezing, stridor, hemoptysis GASTROINTESTINAL: Present: abdominal pain, nausea, vomiting Absent: abdominal distension, diarrhea, constipation, melena, hematochezia GENITOURINARY: Absent: dysuria, frequency, urgency, hesitancy, hematuria, flank pain, genital pain MUSCULOSKELETAL: Absent: myalgia, arthralgia, joint swelling, back pain, neck pain SKIN: Absent: rash, itching, pallor HEMATOLOGIC/IMMUNOLOGIC: Absent: easy bleeding, easy bruising, lymphadenopathy, frequent infections ENDOCRINE: Absent: unexplained weight gain, unexplained weight loss, heat intolerance, cold intolerance NEUROLOGIC: Absent: headache, focal weakness or paresthesias, dizziness, unsteady gait, seizure, mental status changes, bladder or bowel incontinence PSYCHIATRIC: Absent: anxiety, depression, suicidal or homicidal ideation, hallucinations. PHYSICAL EXAMINATION Vital Signs - 24 hr 04/26/18 21:15 Temperature 99.4 F Pulse Rate 110 H Respiratory 18 Rate Blood Pressure 162/104 O2 Sat by Pulse 99 Oximetry (%) GENERAL: Somnolent but arousable, resting comfortably in no acute distress, no longer complaining of abdominal pain. Exam limited as patient fell asleep while seated, then no longer complaint, laid down and continued sleeping. EYES: PERRLA THROAT: Oropharynx clear without exudates. Moist mucous membranes. NECK: No JVD LUNGS: Breath sounds equal, clear to auscultation bilaterally. No wheezes, and no crackles. HEART: Regular rate and rhythm, normal S1 and S2 without murmur ABDOMEN: Soft, Obese, nontender to palpation, not distended, normoactive bowel sounds, no guarding, no rebound MUSCULOSKELETAL: No CVA tenderness. EXTREMITIES: 2+ pulses, No calf tenderness. No peripheral edema Laboratory Results - last 24 hr 04/26/18 04/26/18 04/27/18 22:56 22:56 01:05 WBC 6.9 RBC 4.41 Hgb 10.7 Hct 33.2 MCV 75.3 L MCH 24.3 L MCHC 32.3 RDW 19.3 H Plt Count 402 MPV 7.1 L Absolute Neuts (auto) 4.9 Neutrophils % 71.2 Lymphocytes % 21.7 D Monocytes % 4.5 D Eosinophils % 1.6 D Basophils % 1.0 Nucleated RBC % 0 Sodium 138 Potassium 3.7 Chloride 105 Carbon Dioxide 25 Anion Gap 8 BUN 7 Creatinine 1.1 H Creat Clearance w eGFR 55.01 Random Glucose 100 Calcium 8.7 Total Bilirubin 0.3 AST 20 ALT 18 Alkaline Phosphatase 83 D Total Protein 7.8 Albumin 3.9 Urine Color Ltyellow Urine Appearance Clear Urine pH 6.0 Ur Specific [place] 1.012 Urine Protein Negative Urine Glucose (UA) Negative Urine Ketones Negative Urine Blood 1+ H Urine Nitrite Negative Urine Bilirubin Negative Urine Urobilinogen Negative Ur Leukocyte Esterase Negative Urine WBC (Auto) <1 Urine RBC (Auto) 1 Ur Epithelial Cells Rare Urine Mucus Rare Urine HCG, Qual Negative ASSESSMENT/PLAN: 42 y/o F w a PMHx of R Lung cancer presents with Abdominal pain, nausea and vomiting and will be observed on Tele 1. Abdominal pain accompanied by nausea vomiting - Likely due to Opiate withdrawal; Given IV Ativan in ED - Abdominal US done yesterday did not find gall stones - CT Chest and Abdomen done yesterday - GI (Dr. Giraldo) Consulted - Started on Reglan as EKG shows prolonged QTc - IV 1/2 NS @ 75 mls/hr 2. Opiate withdrawal - Addiction medicine (Dr. Burris) Consulted 3. Uncontrolled HTN - Started on Clonidine 0.1 PO BID as this is also apart of Acute Opiate withdrawal tx - Continuous Cardiac monitoring - Can follow up cardiology outpatient 4. Tobacco Use Nicoderm patch 5. FEN - 1/2 NS @ 75 mls/hr - Lytes WNL - Regular diet 6. PPx - DVT: Lovenox 40mg SQ Q24H Visit type - Emergency Visit Emergency Visit: Yes ED Registration Date: 04/27/18 Care time: The patient presented to the Emergency Department on the above date and was hospitalized for further evaluation of their emergent condition. - New Patient This patient is new to me today: Yes Date on this admission: 04/27/18 - Critical Care Critical Care patient: No Hospitalist Screening - Colonoscopy Questionnaire Colonoscopy Questionnaire: Colonoscopy Questionnaire - Patient: 50 - 75 years old and never had a screening colonoscopy: Unknown History of colon or rectal polyps, or CA: Unknown History of IBD, Crohn's disease or UC: Unknown History of abdominal radiation therapy as a child: Unknown - Relative: 1 with colon or rectal CA, or polyps at age 60 or younger: Unknown Colon or rectal CA diagnosed at age 45 or younger: Unknown Multiple relatives with colon or rectal CA: Unknown - Outcome: Screening Result: Negative Screen
[2018-04-27 06:40] LABS: BASO % 0.7 % (0-2.0); EOS % 1.2 % (0-4.5); HEMATOCRIT 29.5 % (32.4-45.2); HEMOGLOBIN 9.3 GM/dL (10.7-15.3); LYMPH % 31.9 % (8-40); MCHC 31.6 g/dl (32.0-36.0); MEAN PLT VOLUME 7.3 fl (7.5-11.1); MONO % 5.1 % (3.8-10.2); NEUT % 61.1 % (42.8-82.8); PLATELET COUNT 286 K/MM3 (134-434); RBC 3.88 M/mm3 (3.60-5.2); RDW 19.6 % (11.6-15.6); WHITE BLOOD COUNT 5.2 K/mm3 (4.0-10.0)
[2018-04-27 07:06] LABS: ALBUMIN 3.1 g/dl (3.4-5.0); ALK PHOS 68 U/L (45-117); ANION GAP 6 MMOL/L (8-16); BILIRUBIN,TOTAL 0.3 mg/dL (0.2-1.0); BLOOD UREA NITROGEN 6 mg/dL (7-18); CALCIUM 7.7 mg/dL (8.5-10.1); CHLORIDE 108 mmol/L (98-107); CO2 26 mmol/L (21-32); CREATININE 0.9 mg/dL (0.55-1.02); GLUCOSE,RANDOM 101 mg/dL (74-106); MAGNESIUM 1.8 mg/dL (1.8-2.4); PHOSPHOROUS 3.2 mg/dL (2.5-4.9); POTASSIUM 3.8 mmol/L (3.5-5.1); SGOT/AST 15 U/L (15-37); SGPT/ALT 14 U/L (12-78); SODIUM 140 mmol/L (136-145); TOT PROT 6.5 g/dl (6.4-8.2)
--- NOTE | 2018-04-27 09:09 | CON.GI ---
Consult Consult Specialty:: GI Reason for Consultation:: abdomina pain - History of Present Illness History of Present Illness: Chart reviewed. Current and recent ED visits/work ups noted noted. per initial intake: 42 y/o F w a PMHx of R Lung cancer presents with Abdominal pain, nausea and vomiting. Patient was in [facility] ED yesterday (04/25) for a similar complaint however as per the patient, she left to go home to take care of her daughter. She returned today as her abdominal pain is worsening and she has been unable to tolerate PO Intake. Patient was extremely somnolent during my interview, snoring and falling asleep even while sitting up. She describes the pain as a 10/10, burning sensation in the LUQ that travels up her mid sternum. She has tried tylenol with minimal relief. She says the burning increases with water and food. Additionally she complains of >10 episodes of clear vomiting accompanied by fevers and chills. Denies any diarrhea, constipation, SOB, dizziness, lightheadedness. ER course was notable for: (1) Reglan, Ativan, Morphine, Clonidine (2) EKG: NSR, Prolonged QTc 497, VR 100 Microcytic hhypochromic anemia, normal liver chemistry, ALP, bili, lipase. B- HCG negative CT with 04/25/18 :IMPRESSION: 1. Possible post radiation changes medial right lung. 2. No evidence of metastatic disease or acute pathology within the chest. 3. Suspected cholelithiasis. Confirmatory ultrasonography recommended. 4. No evidence of metastatic disease or acute pathology within the abdomen. Limited study as described above. US of RUQ 04/25/18: IMPRESSION: Hepatomegaly with a slightly dense and coarse echotexture suggestive of mild fatty versus hepatocellular disease. Please correlate with liver enzymes. No gallstones are identified. The reported an acute onset nausea and vomiting with subsequent chest burning after taking a muscle relaxant. Denied having diarrhea, fever, chills, eating out, exposure to ill, recently travelling. At the time of this encounter, the pt was ambulating about the floor. NAD, comfortable. No longer nauseous, vomiting, or has dyspepsia. Tolerated Lopez for lunch w/o postprandial symptoms. Reported no prior history of GI-related issues including chronic reflux, GERD, dyspepsia, dysphagia, odynophagia, jaundice, changes in bowels, melena, or hematochezia. No history of liver disease. - History Source History Provided By: Patient, Medical Record - Past Medical History ...LMP: 03/15/15 - Alcohol/Substance Use Hx Alcohol Use: No - Smoking History Smoking history: Current every day smoker Have you smoked in the past 12 months: Yes Aproximately how many cigarettes per day: 10 Home Medications - Allergies Allergies/Adverse Reactions: Allergies Allergy/AdvReac Type Severity Reaction Status Date / Time No Known Allergies Allergy Verified 04/26/18 21:18 - Home Medications Home Medications: Ambulatory Orders Oxycodone HCl/Acetaminophen [Percocet 5-325 mg Tablet] 1 tab PO Q6H #15 tablet MDD 4 12/29/17 Oxycodone HCl/Acetaminophen [Oxycodone-Acetaminophen 10-325] 1 each PO TID PRN # 9 tablet MDD 3 tabs 04/25/18 Family Disease History - Family Disease History Family History: Unremarkable Review of Systems Findings/Remarks: as per HPI, ED, H&P Physical Exam-GI Vital Signs: Vital Signs Temperature 99.2 F 04/27/18 07:37 Pulse Rate 102 H 04/27/18 07:37 Respiratory Rate 16 04/27/18 07:37 Blood Pressure 132/87 04/27/18 07:37 O2 Sat by Pulse Oximetry (%) 98 04/27/18 07:37 Constitutional: Yes: Well Nourished, No Distress, Calm Eyes: Yes: Conjunctiva Clear HENT: Yes: Atraumatic Neck: Yes: Supple Cardiovascular: Yes: Regular Rate and Rhythm Respiratory: Yes: Regular Gastrointestinal Inspection: No: Ascites, Distention ...Auscultate: Yes: Normoactive Bowel Sounds ...Palpate: Yes: Soft. No: Firm/Rigid, Guarding, Mass, Tenderness, Tenderness, Epigastium, Tenderness, Rebound ...Percussion: Yes: Other (generalized discomfiort on deep palpation) Neurological: Yes: Alert, Oriented. No: Confusion, Lethargy Labs: CBC, BMP 04/27/18 06:25 04/27/18 06:25 Laboratory Last Values WBC 5.2 K/mm3 (4.0-10.0) 04/27/18 06:25 RBC 3.88 M/mm3 (3.60-5.2) 04/27/18 06:25 Hgb 9.3 GM/dL (10.7-15.3) L 04/27/18 06:25 Hct 29.5 % (32.4-45.2) L 04/27/18 06:25 MCV 76.0 fl (80-96) L 04/27/18 06:25 MCH 24.0 pg (25.7-33.7) L 04/27/18 06:25 MCHC 31.6 g/dl (32.0-36.0) L 04/27/18 06:25 RDW 19.6 % (11.6-15.6) H 04/27/18 06:25 Plt Count 286 K/MM3 (134-434) D 04/27/18 06:25 MPV 7.3 fl (7.5-11.1) L 04/27/18 06:25 Absolute Neuts (auto) 3.2 K/mm3 (1.5-8.0) 04/27/18 06:25 Neutrophils % 61.1 % (42.8-82.8) 04/27/18 06:25 Lymphocytes % 31.9 % (8-40) D 04/27/18 06:25 Monocytes % 5.1 % (3.8-10.2) 04/27/18 06:25 Eosinophils % 1.2 % (0-4.5) 04/27/18 06:25 Basophils % 0.7 % (0-2.0) 04/27/18 06:25 Nucleated RBC % 0 % (0-0) 04/27/18 06:25 Sodium 140 mmol/L (136-145) 04/27/18 06:25 Potassium 3.8 mmol/L (3.5-5.1) 04/27/18 06:25 Chloride 108 mmol/L (98-107) H 04/27/18 06:25 Carbon Dioxide 26 mmol/L (21-32) 04/27/18 06:25 Anion Gap 6 MMOL/L (8-16) L 04/27/18 06:25 BUN 6 mg/dL (7-18) L 04/27/18 06:25 Creatinine 0.9 mg/dL (0.55-1.02) 04/27/18 06:25 Creat Clearance w eGFR > 60 (>60) 04/27/18 06:25 Random Glucose 101 mg/dL (74-106) 04/27/18 06:25 Calcium 7.7 mg/dL (8.5-10.1) L 04/27/18 06:25 Phosphorus 3.2 mg/dL (2.5-4.9) 04/27/18 06:25 Magnesium 1.8 mg/dL (1.8-2.4) 04/27/18 06:25 Total Bilirubin 0.3 mg/dL (0.2-1.0) 04/27/18 06:25 AST 15 U/L (15-37) 04/27/18 06:25 ALT 14 U/L (12-78) 04/27/18 06:25 Alkaline Phosphatase 68 U/L (45-117) D 04/27/18 06:25 Total Protein 6.5 g/dl (6.4-8.2) 04/27/18 06:25 Albumin 3.1 g/dl (3.4-5.0) L 04/27/18 06:25 Urine Color Ltyellow 04/27/18 01:05 Urine Appearance Clear 04/27/18 01:05 Urine pH 6.0 (5.0-8.0) 04/27/18 01:05 Ur Specific [place] 1.012 (1.001-1.035) 04/27/18 01:05 Urine Protein Negative (NEGATIVE) 04/27/18 01:05 Urine Glucose (UA) Negative (NEGATIVE) 04/27/18 01:05 Urine Ketones Negative (NEGATIVE) 04/27/18 01:05 Urine Blood 1+ (NEGATIVE) H 04/27/18 01:05 Urine Nitrite Negative (NEGATIVE) 04/27/18 01:05 Urine Bilirubin Negative (<2.0 mg/dL) 04/27/18 01:05 Urine Urobilinogen Negative mg/dL (0.2-1.0) 04/27/18 01:05 Ur Leukocyte Esterase Negative (NEGATIVE) 04/27/18 01:05 Urine WBC (Auto) <1 /hpf (3-5) 04/27/18 01:05 Urine RBC (Auto) 1 /hpf (0-3) 04/27/18 01:05 Ur Epithelial Cells Rare /HPF (FEW) 04/27/18 01:05 Urine Mucus Rare 04/27/18 01:05 Urine HCG, Qual Negative 04/27/18 01:05 Imaging - Results X-ray: Report Reviewed Cat Scan: Report Reviewed Ultrasound: Report Reviewed Problem List - Problems (1) Substance abuse Code(s): F19.10 - OTHER PSYCHOACTIVE SUBSTANCE ABUSE, UNCOMPLICATED (2) Abdominal pain Code(s): R10.9 - UNSPECIFIED ABDOMINAL PAIN Assessment/Plan A 42F with acute, short lived nausea, vomiting and resulting dyspepsia. As of this encounter, the pt appeared to feel better and tolerated regular diet. The microcytic, hypochromic anemia has been periodically addressed by pt's academic coach with iron infusions. Pt reported heavy periods. No stigmata of GI bleeding was elicited on history, or noted during this hospitalization. Recommend: Continue supportive care, sent stools for occult blood, iron profile/ supplement.
[2018-04-27] MEDS ORDERED: PT OWN MED DRAWER 7, Y5N ONE (09:23)
[2018-04-27] MEDS ORDERED: cloNIDine HCL 0.1 MG TABLET PO SCH (10:00)
[2018-04-27] MEDS ORDERED: ENOXAPARIN NA (PORCINE) 40 MG/0.4 ML DISP.SYRIN SQ SCH (10:00)
[2018-04-27] MEDS ORDERED: NICOTINE 14 MG/24 HOURS TOPICAL PATCH TD SCH (10:00)
[2018-04-27] MEDS ORDERED: MORPHINE SULFATE 2 MG/ML VIAL IVPUSH ONE (11:00)
[2018-04-27] MEDS ORDERED: oxyCODONE HCL 5 MG TABLET PO PRN (11:30)
[2018-04-27] MEDS ORDERED: oxyCODONE HCL 20 MG SUSTAINED ACTING TABLET PO SCH (11:30)
--- NOTE | 2018-04-27 11:50 | EKG ---
Test Reason : Blood Pressure : / mmHG Vent. Rate : 100 BPM Atrial Rate : 100 BPM P-R Int : 166 ms QRS Dur : 098 ms QT Int : 386 ms P-R-T Axes : 059 010 027 degrees QTc Int : 497 ms NORMAL SINUS RHYTHM POSSIBLE LEFT ATRIAL ENLARGEMENT PROLONGED QT ABNORMAL ECG WHEN COMPARED WITH ECG OF 25-APR-2018 11:18, NO SIGNIFICANT CHANGE WAS FOUND Confirmed by NINFA TAVERA MD ([id number]) on 04/27/2018 11:50:27 AM Referred By: Confirmed By:NINFA TAVERA MD
--- NOTE | 2018-04-27 12:28 | PN ---
Physical Exam: SUBJECTIVE: Patient seen and examined at bedside. She states she used to take oxycodone 10mg then 20mg bc it stopped working now 20mg three times a day wasn't working and she needed more so she stopped taking it and started having symptoms. OBJECTIVE: Vital Signs Period Temp Pulse Resp BP Sys/Bello Pulse Ox Last 24 Hr 98.8 F-99.4 F 102-110 16-18 126-162/77-104 96-99 GENERAL: The patient is awake, alert, and fully oriented, in no acute distress. HEAD: Normal with no signs of trauma. EYES: PERRL, extraocular movements intact, sclera anicteric, conjunctiva clear. No ptosis. ENT:Dry mucous membranes NECK: Trachea midline, full range of motion, supple. LUNGS: Breath sounds equal, clear to auscultation bilaterally, no wheezes, no crackles, no accessory muscle use. HEART: Regular rate and rhythm, S1, S2 without murmur, rub or gallop. ABDOMEN: Soft, nontender, nondistended, normoactive bowel sounds, no guarding, no rebound EXTREMITIES: warm, well-perfused, no edema. NEUROLOGICAL: Cranial nerves II through XII grossly intact. Normal speech Laboratory Results - last 24 hr 04/26/18 04/26/18 04/27/18 22:56 22:56 01:05 WBC 6.9 RBC 4.41 Hgb 10.7 Hct 33.2 MCV 75.3 L MCH 24.3 L MCHC 32.3 RDW 19.3 H Plt Count 402 MPV 7.1 L Absolute Neuts (auto) 4.9 Neutrophils % 71.2 Lymphocytes % 21.7 D Monocytes % 4.5 D Eosinophils % 1.6 D Basophils % 1.0 Nucleated RBC % 0 Sodium 138 Potassium 3.7 Chloride 105 Carbon Dioxide 25 Anion Gap 8 BUN 7 Creatinine 1.1 H Creat Clearance w eGFR 55.01 Random Glucose 100 Calcium 8.7 Phosphorus Magnesium Total Bilirubin 0.3 AST 20 ALT 18 Alkaline Phosphatase 83 D Total Protein 7.8 Albumin 3.9 Urine Color Ltyellow Urine Appearance Clear Urine pH 6.0 Ur Specific [place] 1.012 Urine Protein Negative Urine Glucose (UA) Negative Urine Ketones Negative Urine Blood 1+ H Urine Nitrite Negative Urine Bilirubin Negative Urine Urobilinogen Negative Ur Leukocyte Esterase Negative Urine WBC (Auto) <1 Urine RBC (Auto) 1 Ur Epithelial Cells Rare Urine Mucus Rare Urine HCG, Qual Negative 04/27/18 04/27/18 06:25 06:25 WBC 5.2 RBC 3.88 Hgb 9.3 L Hct 29.5 L MCV 76.0 L MCH 24.0 L MCHC 31.6 L RDW 19.6 H Plt Count 286 D MPV 7.3 L Absolute Neuts (auto) 3.2 Neutrophils % 61.1 Lymphocytes % 31.9 D Monocytes % 5.1 Eosinophils % 1.2 Basophils % 0.7 Nucleated RBC % 0 Sodium 140 Potassium 3.8 Chloride 108 H Carbon Dioxide 26 Anion Gap 6 L BUN 6 L Creatinine 0.9 Creat Clearance w eGFR > 60 Random Glucose 101 Calcium 7.7 L Phosphorus 3.2 Magnesium 1.8 Total Bilirubin 0.3 AST 15 ALT 14 Alkaline Phosphatase 68 D Total Protein 6.5 Albumin 3.1 L Urine Color Urine Appearance Urine pH Ur Specific [place] Urine Protein Urine Glucose (UA) Urine Ketones Urine Blood Urine Nitrite Urine Bilirubin Urine Urobilinogen Ur Leukocyte Esterase Urine WBC (Auto) Urine RBC (Auto) Ur Epithelial Cells Urine Mucus Urine HCG, Qual Active Medications Generic Name Dose Route Start Last Admin Trade Name Freq PRN Reason Stop Dose Admin Clonidine 0.1 mg 04/27/18 10:00 04/27/18 11:01 Catapres - PO Not Given BID [facility] Enoxaparin Sodium 40 mg 04/27/18 10:00 Lovenox - SQ DAILY [facility] Sodium Chloride 1,000 mls @ 75 mls/hr 04/27/18 04:15 04/27/18 04:35 1/2 Normal Saline IV 75 mls/hr ASDIR KAYE Administration Metoclopramide HCl 10 mg 04/27/18 04:10 04/27/18 08:23 Reglan Injection - IVPUSH 10 mg Q6H PRN Administration NAUSEA AND/OR VOMITING Nicotine 14 mg 04/27/18 10:00 04/27/18 09:51 Nicoderm Patch - TD Not Given DAILY [facility] Oxycodone HCl 5 mg 04/27/18 11:30 Roxicodone - PO Q6H PRN PAIN LEVEL 6-10 Oxycodone HCl 20 mg 04/27/18 11:30 Oxycontin - PO BID [facility] ASSESSMENT/PLAN: 42F with PMH of right lung Ca presents with nausea vomiting abdominal pain and diarrhea. Abdominal pain with associated nausea, vomiting, and diarrhea in the setting of prolonged opioid use and sudden stopping. possible due to opioid withdrawals GI consulted-will follow up Addiction medicine consulted tolerating diet lower back pain: will restart pain medications with long acting oxycontin for pain control with breakthrough short acting oxycodone will consult neurosurgery to establish care and to review MRI done on previous visit for possible intervention HTN: Could be from vomiting and pain will stop clonidine and watch for now Tobacco Use Nicoderm patch (refusing) FEN 1/2 NS @ 75 mls/hr no electrolytes abnormalities Regular diet as tolerated PPx: Lovenox Protonix PT consult Case discussed with Dr. Delgadillo Visit type - Emergency Visit Emergency Visit: Yes ED Registration Date: 04/27/18 Care time: The patient presented to the Emergency Department on the above date and was hospitalized for further evaluation of their emergent condition. - New Patient This patient is new to me today: Yes Date on this admission: 04/27/18 - Critical Care Critical Care patient: No - Discharge Referral Referred to [facility] Med P.C.: No
[2018-04-27] MEDS ORDERED: PANTOPRAZOLE 40 MG TABLET (FP) PO SCH (12:45)
--- NOTE | 2018-04-27 14:16 | PN ---
Teaching Attending Note Name of Resident: Jason Blue ATTENDING PHYSICIAN STATEMENT I saw and evaluated the patient. I reviewed the resident's note and discussed the case with the resident. I agree with the resident's findings and plan as documented. SUBJECTIVE: Patient denies abdominal pain, nausea, vomiting. She complains of chronic low back pain. OBJECTIVE: Vital Signs Period Temp Pulse Resp BP Sys/Bello Pulse Ox Last 24 Hr 98.8 F-99.4 F 102-110 16-18 126-162/77-104 96-99 HEART: S1S2, RRR LUNGS: Clear ABDOMEN: Obese, soft, non-tender, non-distended, normal BS EXTREMITIES: No edema Laboratory Results - last 24 hr 04/26/18 04/26/18 04/27/18 22:56 22:56 01:05 WBC 6.9 RBC 4.41 Hgb 10.7 Hct 33.2 MCV 75.3 L MCH 24.3 L MCHC 32.3 RDW 19.3 H Plt Count 402 MPV 7.1 L Absolute Neuts (auto) 4.9 Neutrophils % 71.2 Lymphocytes % 21.7 D Monocytes % 4.5 D Eosinophils % 1.6 D Basophils % 1.0 Nucleated RBC % 0 Sodium 138 Potassium 3.7 Chloride 105 Carbon Dioxide 25 Anion Gap 8 BUN 7 Creatinine 1.1 H Creat Clearance w eGFR 55.01 Random Glucose 100 Calcium 8.7 Phosphorus Magnesium Total Bilirubin 0.3 AST 20 ALT 18 Alkaline Phosphatase 83 D Total Protein 7.8 Albumin 3.9 Urine Color Ltyellow Urine Appearance Clear Urine pH 6.0 Ur Specific [place] 1.012 Urine Protein Negative Urine Glucose (UA) Negative Urine Ketones Negative Urine Blood 1+ H Urine Nitrite Negative Urine Bilirubin Negative Urine Urobilinogen Negative Ur Leukocyte Esterase Negative Urine WBC (Auto) <1 Urine RBC (Auto) 1 Ur Epithelial Cells Rare Urine Mucus Rare Urine HCG, Qual Negative 04/27/18 04/27/18 06:25 06:25 WBC 5.2 RBC 3.88 Hgb 9.3 L Hct 29.5 L MCV 76.0 L MCH 24.0 L MCHC 31.6 L RDW 19.6 H Plt Count 286 D MPV 7.3 L Absolute Neuts (auto) 3.2 Neutrophils % 61.1 Lymphocytes % 31.9 D Monocytes % 5.1 Eosinophils % 1.2 Basophils % 0.7 Nucleated RBC % 0 Sodium 140 Potassium 3.8 Chloride 108 H Carbon Dioxide 26 Anion Gap 6 L BUN 6 L Creatinine 0.9 Creat Clearance w eGFR > 60 Random Glucose 101 Calcium 7.7 L Phosphorus 3.2 Magnesium 1.8 Total Bilirubin 0.3 AST 15 ALT 14 Alkaline Phosphatase 68 D Total Protein 6.5 Albumin 3.1 L Urine Color Urine Appearance Urine pH Ur Specific [place] Urine Protein Urine Glucose (UA) Urine Ketones Urine Blood Urine Nitrite Urine Bilirubin Urine Urobilinogen Ur Leukocyte Esterase Urine WBC (Auto) Urine RBC (Auto) Ur Epithelial Cells Urine Mucus Urine HCG, Qual Current Medications Generic Name Dose Route Start Last Admin Trade Name Freq PRN Reason Stop Dose Admin Enoxaparin Sodium 40 mg 04/27/18 10:00 Lovenox - SQ DAILY [facility] Sodium Chloride 1,000 mls @ 75 mls/hr 04/27/18 04:15 04/27/18 04:35 1/2 Normal Saline IV 75 mls/hr ASDIR KAYE Administration Metoclopramide HCl 10 mg 04/27/18 04:10 04/27/18 08:23 Reglan Injection - IVPUSH 10 mg Q6H PRN Administration NAUSEA AND/OR VOMITING Nicotine 14 mg 04/27/18 10:00 04/27/18 09:51 Nicoderm Patch - TD Not Given DAILY [facility] Oxycodone HCl 5 mg 04/27/18 11:30 Roxicodone - PO Q6H PRN PAIN LEVEL 6-10 Oxycodone HCl 20 mg 04/27/18 11:30 Oxycontin - PO BID KAYE Pantoprazole Sodium 40 mg 04/27/18 12:45 Protonix - PO DAILY [facility] ASSESSMENT AND PLAN: This is a 42 year old woman with a history of lung cancer, chronic low back pain who presented to the ED with abdominal pain, nausea, vomiting, and diarrhea. 1. Abdominal pain with nausea, vomiting, and diarrhea - Possibly secondary to opioid withdrawal - Pain meds restarted - Improved and she is tolerating diet 2. HTN - Improved - Continue to monitor BP 3. Chronic low back pain secondary to lumbar degenerative disease - OxyContin started - Restart oxycodone as needed for breakthrough pain - Physical therapy - Outpatient spine surgery evaluation 4. Nicotine dependence - Refusing nicotine patch 5. History of lung cancer 6. Obesity with BMI 36.5
--- NOTE | 2018-04-27 15:29 | CONSULT ---
Consult Detox [facility] Reason for Current Admission/Consult: Called for consult to evaluate opioid use/ withdrawal - History History of Present Illness: 42 yo admitted for abd pain. Pt states she has been using opioids since she was given this about 5 years after she fell down the stairs. She uses 3 10mg tabs of oxycodone a day. She states that she is looking for a doctor to repair her back- which she states has no "cartilage between the bones". Pt has an appt with a pain doctor on 05/10. She states that she has no withdrawal Sx if she stops using oxycodone. She states that she is not addicted nor is she dependent on this medicine. States she does not need detox services. States she will remain on oxycodone until she has back surgery. - History Source History Provided By: Patient Limitations to Obtaining History: No Limitations - Alcohol/Substance Use Hx Alcohol Use: No Hx Substance Use: Yes (oxycodone 3 tabs 10mg dose per day) - Past Medical History ...LMP: 03/15/15 COWS - Scale Resting Pulse: 1= MS 81-100 Sweatin= No chills or Flushing Restless Observation: 0= Sits Still Pupil Size: 0= Normal to Room Light Bone or Joint Aches: 0= None Runny Nose/ Eye Tearin= None GI Upset > 30mins: 0= None Tremor Observation: 0= None Yawning Observation: 0= None Anxiety or Irritability: 0= None Goose Flesh Skin: 0=Smooth Skin COWS Score: 1 Assessment Plan - Diagnosis (1) Opioid use Status: Acute - Plan Plan: Pt states she is not addicted nor dependent to oxycodone. States will continue with this med for back pain- will be seeing a new pain doc in 2 weeks and expects to get this pain med- as no other meds work to ease pain for her. Also thinks she needs back surgery- is looking for a doctor in [place]. Pt made aware of the availability of buprenorphine and methadone if she needs this in the future. Please call us back if we can help you further.
[2018-04-27 21:24] VITALS: BP 135/82; PULSE 100; TEMP 98.9
--- NOTE | 2018-04-28 07:17 | PN ---
Physical Exam: SUBJECTIVE: Patient seen and examined at bedside left AMA OBJECTIVE: Vital Signs Period Temp Pulse Resp BP Sys/Bello Pulse Ox Last 24 Hr 98.9 F-99.2 F 100-102 16-16 132-135/82-87 98-98 GENERAL: The patient is awake, alert, and fully oriented, in no acute distress. HEAD: Normal with no signs of trauma. EYES: PERRL, extraocular movements intact, sclera anicteric, conjunctiva clear. No ptosis. ENT:Dry mucous membranes NECK: Trachea midline, full range of motion, supple. LUNGS: Breath sounds equal, clear to auscultation bilaterally, no wheezes, no crackles, no accessory muscle use. HEART: Regular rate and rhythm, S1, S2 without murmur, rub or gallop. ABDOMEN: Soft, nontender, nondistended, normoactive bowel sounds, no guarding, no rebound EXTREMITIES: warm, well-perfused, no edema. NEUROLOGICAL: Cranial nerves II through XII grossly intact. Normal speech ASSESSMENT/PLAN: 42F with history of right sided lung Ca, back pain secondary to multiple findings on MRI, presented to the ER with nausea vomiting and abdominal pain. Her signs and symptoms were thought to be related to opioid withdrawals. She was admitted and treated with antiemetics and pain medications. She was started back on an oral opioid regimen as patientstated she could not stop taking the pain medications until her back is taken care of. We decided to call neurosurgery to have her evaluated and also to establish care but the patient left AMA. Floor nurse asset manager spoke to patient and patient still wanted to leave AMA. Risks discussed with patient. Visit type - Emergency Visit Emergency Visit: Yes ED Registration Date: 04/27/18 Care time: The patient presented to the Emergency Department on the above date and was hospitalized for further evaluation of their emergent condition. - New Patient This patient is new to me today: No - Critical Care Critical Care patient: No
== END 2018-04-27 19:30 | disposition left against medical advice (07) ==
LOC: JER 20:56 → JERBED 04-27 01:07 → UNDOADMOB 04-27 01:49 → JERBED 04-27 01:49 → J6S 04-27 08:36
PROVIDERS: ADMIT Internal Medicine; ATTEND Internal Medicine
PROC: 3E033NZ Introduction of Analgesics, Hypnotics, Sedatives into Peripheral Vein, Percutaneous Approach (ICD-10-PCS; principal; 2018-04-27)
PROC: 3E033GC Introduction of Other Therapeutic Substance into Peripheral Vein, Percutaneous Approach (ICD-10-PCS; 2018-04-27)
PROC: 3E0337Z Introduction of Electrolytic and Water Balance Substance into Peripheral Vein, Percutaneous Approach (ICD-10-PCS; 2018-04-27)
DX: R10.9 Unspecified abdominal pain (principal); R11.2 Nausea with vomiting, unspecified; F11.23 Opioid dependence with withdrawal; F17.210 Nicotine dependence, cigarettes, uncomplicated; M54.5 Low back pain; G89.29 Other chronic pain; M47.9 Spondylosis, unspecified; Z85.118 Personal history of other malignant neoplasm of bronchus and lung
CPT/HCPCS: 36415; 80053; 81003; 81015; 83735; 84100; 84703; 85025; 87086; 93005; 93010; 96365; 96375; 96376; 99284-25; G0378; J0131; J0735; J7030

== ENCOUNTER 2021-10-13 04:35 | Day surgery (SDC) | payer OTHER ==
[2021-10-09 17:14] VITALS: BMI 27.3
[2021-10-13] MEDS ORDERED: TRIAMCINOLONE ACET 40MG/1ML VIAL ONE (07:24)
[2021-10-13] MEDS ORDERED: BUPIVACAINE HCL/PF 0.5% (5MG/ML) 10 ML VIAL ONE (07:25)
[2021-10-13] MEDS ORDERED: LIDOCAINE HCL/PF 1% SDV 5ML VIAL ONE (07:25)
[2021-10-13] MEDS ORDERED: PROPOFOL 20 ML ONE ×2 (12:00)
[2021-10-13] MEDS ORDERED: MIDAZOLAM HCL 2 MG/2 ML SINGLE DOSE VIAL ONE (12:00)
[2021-10-13] MEDS ORDERED: LIDOCAINE HCL/PF 2% SDV 5ML VIAL ONE (12:00)
[2021-10-13] MEDS ORDERED: BUPIVACAINE HCL/PF 0.5% (5MG/ML) 10 ML VIAL IJ ONE ×3 (12:08→12:15)
[2021-10-13] MEDS ORDERED: LIDOCAINE HCL 1% PRESERVATIVE FREE - 30ML VIAL IJ ONE (12:08)
[2021-10-13] MEDS ORDERED: TRIAMCINOLONE ACET 40MG/1ML VIAL IM ONE ×2 (12:09→12:16)
[2021-10-13] MEDS ORDERED: IOHEXOL 180 MG/1 ML ML IJ ONE (12:12)
[2021-10-13] MEDS ORDERED: oxyCODONE HCL 5 MG TABLET PO PRN (12:29)
[2021-10-13] MEDS ORDERED: ACETAMINOPHEN 325 MG TABLET (FP) PO PRN (12:29)
[2021-10-13] MEDS ORDERED: ONDANSETRON 4 MG/2 ML VIAL IVPUSH PRN (12:29)
[2021-10-13] MEDS ORDERED: LACTATED RINGERS SOLUTION 1,000 ML IV SCH (12:30)
[2021-10-13 13:11] VITALS: TEMP 98
[2021-10-13 14:25] VITALS: BP 140/90; PULSE 98
== END 2021-10-13 13:30 | disposition home or self-care (01) ==
LOC: JASU-SURG 04:35
PROVIDERS: ATTEND Pain Medicine Pain Medicine
PROC: 3E0U3BZ Introduction of Anesthetic Agent into Joints, Percutaneous Approach (ICD-10-PCS; 2021-10-13)
PROC: 3E0U33Z Introduction of Anti-inflammatory into Joints, Percutaneous Approach (ICD-10-PCS; principal; 2021-10-13 10:30)
DX: M53.3 Sacrococcygeal disorders, not elsewhere classified (principal); I10 Essential (primary) hypertension
CPT/HCPCS: 76000-TC-FY; 81025; 94760

== ENCOUNTER 2022-05-31 14:06 | Emergency (ER) | payer OTHER ==
[2022-05-31 14:21] VITALS: BP 150/93; PULSE 103; RESP 18; TEMP 98.1; BMI 27.3
[2022-05-31] MEDS ORDERED: IBUPROFEN 600 MG TABLET (FP) PO ONE ×2 (15:25→15:49)
[2022-05-31] MEDS ORDERED: CLINDAMYCIN HCL 150 MG CAPSULE (FP) PO ONE (15:25)
[2022-05-31] MEDS ORDERED: CLINDAMYCIN HCL 150 MG CAPSULE (FP) ONE (15:49)
== END 2022-05-31 16:53 | disposition left against medical advice (07) ==
LOC: JER 14:06 → JERFT 14:06
DX: K04.7 Periapical abscess without sinus (principal)
CPT/HCPCS: 99283-25